=== PATIENT | female | born 1965 | race Caucasian/White ===

== ENCOUNTER → 2017-02-26 | Outpatient (CLI) | payer BC ==
[~2017-02-26] MED LIST: ASPIRIN81 M1 PO; BACTRIM DS 8001 TA1 PO; BIOTIN PLUS KE1 EACH PO; CLARITIN10 MG PO; CYMBALTA60 MG PO; FIORICET 50-301 EACH PO; FLAGYL500 MG PO; HYDROCHLOROTHIA25 MG PO; LIDOCREAM5 GM TP; LIPITOR20 MG PO; LIVALO4 MG PO; MEDROL DOSEPAK4 MG PO; METOPROLOL SR25 MG PO; NEURONTIN100 MG PO; NEXIUM40 MG PO; PEPCID40 MG PO; PREDNICOT20 MG PO; PROTONIX40 MG PO; PYRIDIUM200 M1 PO; TOPROL XL25 MG PO; TYLENOL500 MG PO; ULTRAM50 MG PO; VISTARIL25 M1 PO; ZOFRAN ODT4 MG SL; ZOLOFT100 MG PO
== END | disposition home or self-care (01) ==
LOC: MAMMO 08:30
DX: Z12.31 Encounter for screening mammogram for malignant neoplasm of breast (principal)

== ENCOUNTER → 2017-12-31 | Outpatient (CLI) | payer BC ==
[~2017-12-31] MED LIST changes: +Lopressor25 MG PO; +Motrin,Rufen800 MG PO
== END | disposition home or self-care (01) ==
LOC: CARD 01:08
DX: R07.2 Precordial pain (principal)

== ENCOUNTER → 2018-02-16 | Outpatient (CLI) | payer BC | END | disposition home or self-care (01) | LOC: LAB 14:00 | DX: N23 Unspecified renal colic (principal) ==

== ENCOUNTER → 2018-08-26 | Day surgery (SDC) | payer BC ==
[~2018-08-26] VITALS: Ht 162.5 cm; Wt 90.7 kg
[~2018-08-26] MED LIST changes: +BENADRYL ALLERG25 M5 PO; +PEPCID20 MG PO
--- NOTE | ~2018-08-26 | O ---
[place], [place] OPERATIVE NOTE NAME: [id number] UNIT #: [id number] ROOM: DOCTOR: JIM YADAV MD BIRTHDATE: [birth year] DOS: 08/26/2018 GASTROENDOSCOPIC REPORT INDICATIONS: This a 53-year-old patient who presented with a chief complaint of diarrhea, change in bowel habits, undergoing investigation. PAST MEDICAL HISTORY: Anxiety, hyperlipidemia, obesity, tachycardia. ALLERGIES: AVELOX, MACROBID PRODUCTS. FAMILY HISTORY: An aunt with pancreatic carcinoma. SOCIAL HISTORY: Nonsmoker. Nonalcohol consumer. PAST SURGICAL HISTORY: Carpal tunnel, . PROCEDURE: Today's procedure part of investigation is colonoscopy plus 3 piecemeal polypectomies. PREMEDICATION: Propofol. SCOPE: Olympus forward-viewing colonoscope 10L video. REPORT: After putting the patient in left lateral position and application of lubricant to the scope, the scope was introduced, thereafter under direct visualization advanced through the length of colon without difficulty. Base of the cecum explored. Sessile polypoid lesion from cecum, 1 from hepatic flexure and 1 from sigmoid colon with piecemeal polypectomy were removed. Air was suctioned out. The patient was extubated, tolerated the procedure well. IMPRESSION: Colonoscopy, 3 sessile polyps at cecal, hepatic flexure and sigmoid colon, status post polypectomies. PLAN: High-fiber diet. Activity ad marquis. Follow up as an outpatient. The patient is to stop aspirin and Motrin for 3 days after colonoscopy due to the piecemeal polypectomies. The patient is advised to have followup routinely with you in the office, p.r.n. visits with us in [facility]. Thank you very much indeed for your kind referral. [place], [place] OPERATIVE NOTE NAME: PATTI HENRIQUEZ UNIT #: [id number] ROOM: DOCTOR: JIM YADAV MD BIRTHDATE: [birth year] JIM YADAV MD CM:OPRECORD:OPERATIVE NOTE [id number] JACKELYN YADAV MD 08/26/18 1130 interface
[2018-08-26 09:15] VITALS: BP 140/59
[2018-08-26 10:16] VITALS: BP 104/58
[2018-08-26 10:31] VITALS: BP 104/60
[2018-08-26 10:46] VITALS: BP 110/62
== END | disposition home or self-care (01) ==
LOC: SDC 08-24 10:15
DX: D12.0 Benign neoplasm of cecum (principal); D12.5 Benign neoplasm of sigmoid colon; K63.5 Polyp of colon; I10 Essential (primary) hypertension; K21.9 Gastro-esophageal reflux disease without esophagitis; F41.9 Anxiety disorder, unspecified; E78.5 Hyperlipidemia, unspecified; E66.9 Obesity, unspecified; Z68.34 Body mass index [BMI] 34.0-34.9, adult; Z88.8 Allergy status to other drugs, medicaments and biological substances; Z88.1 Allergy status to other antibiotic agents; Z91.030 Bee allergy status; Z98.890 Other specified postprocedural states; Z79.82 Long term (current) use of aspirin; Z87.442 Personal history of urinary calculi; Z87.440 Personal history of urinary (tract) infections; Z82.49 Family history of ischemic heart disease and other diseases of the circulatory system; Z83.3 Family history of diabetes mellitus; Z82.3 Family history of stroke; Z80.0 Family history of malignant neoplasm of digestive organs

== ENCOUNTER 2018-09-22 01:47 | Emergency (ER) | payer BC ==
[~2018-09-22] VITALS: Ht 162.5 cm; Wt 90.7 kg
[~2018-09-22 01:47] MED LIST changes: -BENADRYL ALLERG25 M5 PO; -PEPCID20 MG PO
[2018-09-22] MEDS ORDERED: MEDROL DOSEPAK4 MG PO (03:55)
[2018-09-22] MEDS ORDERED: BENADRYL ALLERG25 M5 PO (03:55)
[2018-09-22] MEDS ORDERED: PEPCID20 MG PO (03:55)
[2018-09-22 04:00] VITALS: BP 137/78
== END 2018-09-22 04:00 | disposition home or self-care (01) ==
LOC: ED 01:47
DX: T78.40XA Allergy, unspecified, initial encounter (principal); R19.7 Diarrhea, unspecified; Z91.030 Bee allergy status; Z88.1 Allergy status to other antibiotic agents; Z79.899 Other long term (current) drug therapy; Z79.82 Long term (current) use of aspirin; Z87.442 Personal history of urinary calculi; X58.XXXA Exposure to other specified factors, initial encounter

== ENCOUNTER → 2019-09-12 | Outpatient (CLI) | payer BC ==
[~2019-09-12] MED LIST changes: +BENADRYL ALLERG25 M5 PO; +PEPCID20 MG PO
== END | disposition home or self-care (01) ==
LOC: RAD 11:33
DX: M25.541 Pain in joints of right hand (principal)

== ENCOUNTER → 2020-03-13 | Outpatient (CLI) | payer BC | END | disposition home or self-care (01) | LOC: COVID19 03:09 | DX: Z20.828 Contact with and (suspected) exposure to other viral communicable diseases (principal) ==

== ENCOUNTER → 2020-04-20 | Emergency (ER) | payer BC ==
[~2020-04-20] VITALS: Wt 83.9 kg
[~2020-04-20] MED LIST changes: +CEPHALEXIN500 M1 PO; +DEXTROAMPH SACC20 M1 PO
[2020-04-20 18:20] LABS: BILIRUBIN NEGATIVE; BLOOD 3+ (NEGATIVE); CLARITY CLOUDY (CLEAR); COLOR YELLOW (YELLOW); GLUCOSE NEGATIVE; KETONE NEGATIVE; LEUKO ESTERASE 1+ (NEGATIVE); NITRITE NEGATIVE (NEGATIVE); PH 6.5 (4.5-8.0); SPECIFIC GRAVITY 1.025 (1.001-1.030)
[2020-04-20 18:29] LABS: BACTERIA 2+; EPITHELIAL CELLS 16-20; RBC 51-100 rbc/hpf (0-2)
[2020-04-20 18:43] LABS: BASO # 0.1 10*3/uL (0.0-0.1); BASO % 0.9 % (0.0-1.0); EOS # 0.3 10*3/uL (0.0-0.4); EOS % 3.7 % (1.0-4.0); HEMATOCRIT 42.7 % (37.0-47.0); LYMPH # 1.9 10*3/uL (1.3-4.4); LYMPH % 24.3 % (27.0-41.0); MEAN CELL VOLUME 86.6 fl (81.0-99.0); MEAN CORPUSCULAR HGB 28.4 pg (27.0-31.0); MEAN CORPUSCULAR HGB CONC 32.8 g/dl (33.0-37.0); MEAN PLATELET VOLUME 9.7 fl (9.6-12.3); MONO # 0.5 10*3/uL (0.1-1.0); MONO % 6.5 % (3.0-9.0); NEUT % 64.3 % (47.0-73.0); PLATELET COUNT AUTOMATED 244 10*3/uL (130-400); RED BLOOD COUNT 4.93 10*6/uL (4.10-5.10); RED CELL DISTRI WIDTH 11.8 % (0-14.5); WHITE BLOOD COUNT 7.8 10*3/uL (4.8-10.8)
[2020-04-20 18:59] LABS: ALKALINE PHOSPHATASE 111 U/L (45-117); BUN 16 mg/dl (7-24); CHLORIDE 110 mmol/L (98-107); CREATININE 0.89 mg/dL (0.55-1.02); POTASSIUM 3.3 mmol/L (3.5-5.1); SGOT/AST 48 IU/L (3-35); SGPT/ALT 89 U/L (12-78); SODIUM 142 mmol/L (136-145); TOTAL PROTEIN 7.7 gm/dL (6.4-8.2)
[2020-04-20 20:40] VITALS: BP 153/90
== END ==
LOC: ED 17:42
PROVIDERS: Emergency Medicine
DX: N13.2 Hydronephrosis with renal and ureteral calculous obstruction (principal); N39.0 Urinary tract infection, site not specified; Z88.1 Allergy status to other antibiotic agents; Z79.899 Other long term (current) drug therapy; Z79.82 Long term (current) use of aspirin

== ENCOUNTER → 2020-04-24 | Outpatient (CLI) | payer BC | END | disposition home or self-care (01) | LOC: COVID19 04-21 00:22 | PROVIDERS: ATTEND Internal Medicine Gastroenterology | DX: Z20.828 Contact with and (suspected) exposure to other viral communicable diseases (principal) ==

== ENCOUNTER → 2020-04-28 | Day surgery (SDC) | payer BC ==
[~2020-04-28] VITALS: Ht 162.5 cm; Wt 83.9 kg
[2020-04-28 08:36] VITALS: BP 145/83
[2020-04-28 09:30] VITALS: BP 124/52
[2020-04-28 09:45] VITALS: BP 116/61
[2020-04-28 09:58] VITALS: BP 124/52
== END | disposition home or self-care (01) ==
LOC: SDC 04-25 00:59
PROVIDERS: ATTEND Internal Medicine Gastroenterology
DX: Z09 Encounter for follow-up examination after completed treatment for conditions other than malignant neoplasm (principal); D12.8 Benign neoplasm of rectum; F41.9 Anxiety disorder, unspecified; F32.9 Major depressive disorder, single episode, unspecified; E78.5 Hyperlipidemia, unspecified; K21.9 Gastro-esophageal reflux disease without esophagitis; K64.8 Other hemorrhoids; Z86.010 Personal history of colon polyps; Z98.890 Other specified postprocedural states; Z79.899 Other long term (current) drug therapy; Z83.3 Family history of diabetes mellitus; Z82.49 Family history of ischemic heart disease and other diseases of the circulatory system

== ENCOUNTER → 2020-05-05 | Outpatient (CLI) | payer BC ==
[2020-05-05 14:10] LABS: BASO # 0.1 10*3/uL (0.0-0.1); EOS # 0.3 10*3/uL (0.0-0.4); EOS % 5.4 % (1.0-4.0); HEMATOCRIT 42.1 % (37.0-47.0); LYMPH % 33.1 % (27.0-41.0); MEAN CELL VOLUME 89.2 fl (81.0-99.0); MEAN CORPUSCULAR HGB CONC 32.5 g/dl (33.0-37.0); MEAN PLATELET VOLUME 9.7 fl (9.6-12.3); MONO # 0.5 10*3/uL (0.1-1.0); MONO % 7.7 % (3.0-9.0); NEUT # 3.1 10*3/uL (2.3-7.9); NEUT % 51.6 % (47.0-73.0); PLATELET COUNT AUTOMATED 251 10*3/uL (130-400); RED BLOOD COUNT 4.72 10*6/uL (4.10-5.10); RED CELL DISTRI WIDTH 11.6 % (0-14.5)
[2020-05-05 14:18] LABS: CHLORIDE 105 mmol/L (98-107); SODIUM 140 mmol/L (136-145)
[2020-05-05 14:27] LABS: ALBUMIN 4.1 gm/dl (3.1-4.5); ALKALINE PHOSPHATASE 95 U/L (45-117); BUN 18 mg/dl (7-24); CREATININE 0.72 mg/dL (0.55-1.02); SGOT/AST 37 IU/L (3-35); SGPT/ALT 76 U/L (12-78); T3 UPTAKE 33 % (31-39); THYROXINE (T4) TOTAL 11.2 ug/dl (4.8-13.9); TOTAL PROTEIN 7.4 gm/dL (6.4-8.2)
[2020-05-05 15:30] LABS: BILIRUBIN NEGATIVE; BLOOD NEGATIVE (NEGATIVE); CLARITY CLEAR (CLEAR); COLOR YELLOW (YELLOW); GLUCOSE NEGATIVE; KETONE NEGATIVE; LEUKO ESTERASE 2+ (NEGATIVE); NITRITE NEGATIVE (NEGATIVE); PH 6.5 (4.5-8.0); UROBILINOGEN 0.2 E.U./dl (0.0-1.0)
[2020-05-05 17:11] LABS: BACTERIA 3+; EPITHELIAL CELLS 16-20; WBC 21-30 wbc/hpf (0-5)
== END | disposition home or self-care (01) ==
LOC: US 04-27 17:00
PROVIDERS: ATTEND Urology
DX: N20.0 Calculus of kidney (principal)

== ENCOUNTER → 2020-05-10 | Outpatient (CLI) | payer BC | END | disposition home or self-care (01) | LOC: US 03:35 | PROVIDERS: ATTEND Internal Medicine | DX: K76.0 Fatty (change of) liver, not elsewhere classified (principal) ==

== ENCOUNTER → 2020-05-15 | Outpatient (CLI) | payer BC | END | disposition home or self-care (01) | LOC: LAB 08:37 | PROVIDERS: ATTEND Urology | DX: N20.0 Calculus of kidney (principal); R31.9 Hematuria, unspecified ==

== ENCOUNTER → 2020-05-17 | Outpatient (CLI) | payer BC | END | disposition home or self-care (01) | LOC: MAMMO 05-16 00:19 | PROVIDERS: ATTEND Internal Medicine | DX: Z12.31 Encounter for screening mammogram for malignant neoplasm of breast (principal); M19.011 Primary osteoarthritis, right shoulder ==

== ENCOUNTER → 2021-04-04 | Outpatient (CLI) | payer BC ==
[2021-04-04 08:43] LABS: BILIRUBIN Negative (Negative); BLOOD 1+ (Negative); CLARITY Cloudy (Clear); COLOR Yellow (Yellow); GLUCOSE Negative (Negative); KETONE Negative (Negative); LEUKO ESTERASE 3+ (Negative); NITRITE Negative (Negative); PH 5.5 (4.5-8.0); UROBILINOGEN 0.2 E.U./dl (0.0-1.0)
[2021-04-04 09:33] LABS: WBC TNTC wbc/hpf (0-5)
[2021-04-04 09:34] LABS: BACTERIA 3+; EPITHELIAL CELLS 41-50
== END | disposition home or self-care (01) ==
LOC: US 07:30 → LAB 07:33
PROVIDERS: ATTEND Urology
DX: R35.0 Frequency of micturition (principal); R39.15 Urgency of urination

== ENCOUNTER → 2021-05-09 | Outpatient (CLI) | payer BC ==
[~2021-05-09] MED LIST changes: +ASPIRIN ADULT L81 M2 PO; +DETROL LA4 MG PO; +HYDROCHLOROTH12.5 M3 PO; +LOPRESSOR25 MG PO; +SERTRALINE HYD100 MG PO
[2021-05-09 08:38] VITALS: BP 138/81
== END | disposition home or self-care (01) ==
LOC: INJECTION 00:15
PROVIDERS: ATTEND Internal Medicine
DX: N73.9 Female pelvic inflammatory disease, unspecified (principal); K21.9 Gastro-esophageal reflux disease without esophagitis; F41.9 Anxiety disorder, unspecified

== ENCOUNTER → 2021-06-28 | Outpatient (CLI) | payer BC | END | disposition home or self-care (01) | LOC: COVID19 17:45 | PROVIDERS: ATTEND Internal Medicine | DX: Z11.52 Encounter for screening for COVID-19 (principal) ==

== ENCOUNTER → 2021-11-08 | Outpatient (CLI) | payer BC | END | disposition home or self-care (01) | LOC: MAMMO 02:26 | PROVIDERS: ATTEND Internal Medicine | DX: Z12.31 Encounter for screening mammogram for malignant neoplasm of breast (principal) ==

== ENCOUNTER 2022-05-14 08:32 | Emergency (ER) | payer BC ==
[~2022-05-14] VITALS: Ht 162.5 cm; Wt 89.8 kg
[2022-05-14 08:39] VITALS: BP 157/91
[2022-05-14 09:09] LABS: BILIRUBIN Negative (Negative); BLOOD 3+ (Negative); CLARITY Cloudy (Clear); COLOR Yellow (Yellow); GLUCOSE Negative (Negative); KETONE Negative (Negative); LEUKO ESTERASE 3+ (Negative); NITRITE Negative (Negative); SPECIFIC GRAVITY 1.015 (1.001-1.030); UROBILINOGEN 0.2 E.U./dl (0.0-1.0)
[2022-05-14 09:47] LABS: BACTERIA 2+; RBC TNTC rbc/hpf (0-2); WBC TNTC wbc/hpf (0-5)
[2022-05-14 09:49] LABS: BASO # 0.1 10*3/uL (0.0-0.1); BASO % 1.1 % (0.0-1.0); EOS # 0.3 10*3/uL (0.0-0.4); EOS % 5.4 % (1.0-4.0); HEMATOCRIT 40.9 % (37.0-47.0); LYMPH # 1.5 10*3/uL (1.3-4.4); LYMPH % 27.5 % (27.0-41.0); MEAN CELL VOLUME 89.3 fl (81.0-99.0); MEAN CORPUSCULAR HGB 29.7 pg (27.0-31.0); MEAN CORPUSCULAR HGB CONC 33.3 g/dl (33.0-37.0); MEAN PLATELET VOLUME 9.2 fl (9.6-12.3); MONO # 0.4 10*3/uL (0.1-1.0); MONO % 7.5 % (3.0-9.0); NEUT # 3.1 10*3/uL (2.3-7.9); NEUT % 57.9 % (47.0-73.0); PLATELET COUNT AUTOMATED 199 10*3/uL (130-400); RED BLOOD COUNT 4.58 10*6/uL (4.10-5.10); RED CELL DISTRI WIDTH 11.9 % (0-14.5); WHITE BLOOD COUNT 5.3 10*3/uL (4.8-10.8)
[2022-05-14 10:16] LABS: ALKALINE PHOSPHATASE 115 U/L (45-117); BUN 16 mg/dl (7-24); CHLORIDE 112 mmol/L (98-107); CREATININE 0.68 mg/dL (0.55-1.02); LIPASE 131 U/L (73-393); SGOT/AST 25 IU/L (3-35); SGPT/ALT 46 U/L (12-78); SODIUM 142 mmol/L (136-145)
[2022-05-14] MEDS ORDERED: FLOMAX0.4 MG PO (12:07)
[2022-05-14] MEDS ORDERED: Motrin,Rufen800 MG PO (12:07)
[2022-05-14] MEDS ORDERED: SEPTDS PO (12:07)
[2022-05-14] MEDS ORDERED: HYDROCODONE-AC1 EAC1 PO (12:07)
== END 2022-05-14 12:31 | disposition home or self-care (01) ==
LOC: ED 08:32
PROVIDERS: Emergency Medicine
DX: N13.2 Hydronephrosis with renal and ureteral calculous obstruction (principal); Z88.1 Allergy status to other antibiotic agents; Z98.890 Other specified postprocedural states

== ENCOUNTER → 2022-07-02 | Outpatient (CLI) | payer BC ==
[~2022-07-02] MED LIST changes: +FLOMAX0.4 MG PO; +HYDROCODONE-AC1 EAC1 PO; +SEPTDS PO
== END ==
LOC: RAD 18:19
PROVIDERS: ATTEND Urology
DX: N20.0 Calculus of kidney (principal)

== ENCOUNTER → 2022-07-05 | Outpatient (CLI) | payer BC ==
[2022-07-05 08:51] LABS: BUN 11 mg/dl (7-24); CHLORIDE 105 mmol/L (98-107); CREATININE 0.77 mg/dL (0.55-1.02); POTASSIUM 4.1 mmol/L (3.5-5.1); SODIUM 139 mmol/L (136-145)
== END | disposition home or self-care (01) ==
LOC: LAB 08:09
PROVIDERS: ATTEND Internal Medicine
DX: U07.1 COVID-19 (principal)

== ENCOUNTER → 2022-08-29 | Outpatient (CLI) | payer BC | END | disposition home or self-care (01) | LOC: CT 00:52 | PROVIDERS: ATTEND Urology | DX: N20.0 Calculus of kidney (principal); K76.0 Fatty (change of) liver, not elsewhere classified ==

== ENCOUNTER 2025-06-22 04:14 | Emergency (ER) | payer BC ==
[~2025-06-22] VITALS: Ht 160 cm; Wt 89.8 kg
[2025-06-22] MEDS ORDERED: Ondansetron Hydrochloride 4 MG/2 ML VIAL IV ONE (04:35)
[2025-06-22] MEDS ORDERED: SODIUM CHLORIDE 0.9% 1,000 ML IV ONE (04:35)
[2025-06-22] MEDS ORDERED: IOHEXOL 300 MG/ML 100 ML VIAL IV ONE (04:35)
[2025-06-22 04:43] LABS: BASO # 0.1 10*3/uL (0.0-0.1); BASO % 1.0 % (0.0-1.0); EOS # 0.3 10*3/uL (0.0-0.4); EOS % 4.0 % (1.0-4.0); MEAN CELL VOLUME 90.0 fl (81.0-99.0); MEAN CORPUSCULAR HGB 29.1 pg (27.0-31.0); MEAN PLATELET VOLUME 9.1 fl (9.6-12.3); MONO # 0.6 10*3/uL (0.1-1.0); MONO % 7.5 % (3.0-9.0); NEUT # 4.4 10*3/uL (2.3-7.9); NEUT % 55.1 % (47.0-73.0); NUCLEATED RED BLOOD CELL 0.0 % (0.0-0.0); NUCLEATED RED BLOOD CELL 0.0 10*3/uL (0.0-0.0); PLATELET COUNT AUTOMATED 240 10*3/uL (130-400); RED CELL DISTRI WIDTH 12.0 % (0-14.5)
[2025-06-22 05:03] LABS: BUN 15 mg/dl (9-23); SGPT/ALT 27 U/L (5-49)
[2025-06-22 05:44] VITALS: BP 124/58
== END 2025-06-22 06:48 | disposition home or self-care (01) ==
LOC: ED 04:14
PROVIDERS: Internal Medicine
DX: N20.0 Calculus of kidney (principal); K21.9 Gastro-esophageal reflux disease without esophagitis; F41.9 Anxiety disorder, unspecified; Z98.890 Other specified postprocedural states; Z91.030 Bee allergy status; Z88.8 Allergy status to other drugs, medicaments and biological substances